=== PATIENT | female | born 1960 | race Caucasian/White ===

== ENCOUNTER 2017-08-11 05:49 | Emergency (ER) | payer OTHER ==
[~2017-08-11] VITALS: Ht 167.6 cm; Wt 74.5 kg
[~2017-08-11 05:49] MED LIST: PRILOSEC10 MG PO
[2017-08-11 06:24] LABS: APPEARANCE CLEAR ((CLEAR)); BILIRUBIN NEGATIVE; BLOOD NEGATIVE; COLOR YELLOW ((YELLOW)); GLUCOSE (STRIP) NEGATIVE; KETONES NEGATIVE; LEUKOCYTES MODERATE; NITRITE NEGATIVE; PROTEIN (STRIP) NEGATIVE; SPECIFIC GRAVITY 1.016 (1.000-1.030); UROBILINOGEN 0.2 MG/DL (0.2-1.0)
[2017-08-11 06:38] LABS: HEMATOCRIT 42.3 % (36.0-46.0); MCH 29.7 PG (29.0-34.0); MCHC 33.1 G/DL (30.0-36.0); MCV 89.8 FL (83-99); RBC DIS.WIDTH-CV 13.5 % (11.8-14.6); RBC DIS.WIDTH-SD 42.6 % (39-53); RED BLOOD COUNT 4.71 M/uL (3.80-5.20); WHITE BLOOD COUNT 12.7 K/uL (4.1-10.2)
[2017-08-11 07:15] LABS: BACTERIA NONE SEEN /HPF; EPITHELIAL CELLS RARE /HPF; MUCUS TRACE /LPF; RED BLOOD CELLS 0-5 /HPF (0-5); UCUL ADDED? YES; WHITE BLOOD CELLS 15-20 /HPF (0-5)
[2017-08-11 07:50] LABS: ALBUMIN 3.9 G/DL (3.2-4.8); ALKALINE PHOSPHATASE 81 IU/L (3-129); ALT (GPT) 11 IU/L (3-49); AST (GOT) 15 IU/L (2-34); CHLORIDE 109 MEQ/L (99-109); CREATININE 0.6 MG/DL (0.6-1.3); GFR ESTIMATE (CALCULATED) > 59 mL/min/; GLUCOSE 113 mg/dL (70-99); POTASSIUM 3.9 MEQ/L (3.7-5.4); SODIUM 141 MEQ/L (136-147); TOTAL BILIRUBIN 0.4 MG/DL (0.0-1.0); TOTAL PROTEIN 6.6 G/DL (6.4-8.3); UREA NITROGEN (BUN) 19 mg/dL (9-23)
[2017-08-11 08:40] LABS: HEMATOLOGY COMMENT 1 SMEAR COMPATIBLE; PLAT.SUFFICIENCY ADEQUATE; PLATELET COUNT 227 K/uL (156-360)
[2017-08-11 08:53] LABS: LIPASE 31 U/L (1.0-51.0)
[2017-08-11] MEDS ORDERED: BACTRIM,SEPT1 TABLET PO (10:00)
[2017-08-11] MEDS ORDERED: ZOFRAN4 MG PO (10:00)
[2017-08-11] MEDS ORDERED: ULTRAM50 MG PO (10:31)
[2017-08-11 10:36] VITALS: BP 110/79
== END 2017-08-11 10:39 | disposition home or self-care (01) ==
LOC: EME 05:49
PROVIDERS: Physician Assistant
DX: N20.0 Calculus of kidney (principal); N12 Tubulo-interstitial nephritis, not specified as acute or chronic; Z85.820 Personal history of malignant melanoma of skin
CPT/HCPCS: 74177; 80053; 81003; 83605; 83690; 84460; 84702; 84999; 85027; 87040; 87086; 99281; 99285; J0696; J2405; J3010; J7030